=== PATIENT | male | born 1980 | race Caucasian/White ===

== ENCOUNTER 2024-12-15 18:58 | Emergency (ER) | payer SELFPAY ==
[2024-12-15 19:27] VITALS: BP 181/108; PULSE 98; RESP 16; TEMP 37.1; O2SAT 98; BMI 32.5
--- NOTE | 2024-12-15 20:20 | HMH.EDGENADL ---
Discharge Plan Disposition Patient Disposition: Home, Self-Care Condition: Good Prescriptions Prescriptions: New oxycodone 5 mg tablet 5 mg PO Q6H PRN (Reason: pain) 3 Days Qty: 10 0RF ketorolac 10 mg tablet 10 mg PO Q8H PRN (Reason: pain) 10 Days Qty: 20 0RF Referrals Follow up/Referrals: Provider,Referral, MD [Primary Care Provider] - See instructions Activity Restrictions/Add. Instructions Additional Instructions/Restrictions: After our discussion, including my recommendation that we drain fluid off your knee to see what the cause of the fluid accumulation is, which could be something infectious that could lead to disability or if untreated, we will proceed with concervative managment at this time. Please follow up with an orthopedist or pcp and return with new or worsening symptoms. Clinical Impressions Clinical Impression: Effusion of knee Stand Alone Forms Stand Alone Forms: Work/School Release Print Language Print Language: Maltese Discharge ED Provider: Jimmie Galloway Adult [facility] General Chief complaint: PAIN Stated complaint: left leg pain and swollen Time Seen by Provider: 12/15/24 20:20 Mode of Arrival: Ambulatory Source of Information: Patient Description of Symptoms (Recalled from ER Triage Doc. by RN): C/o pain and swelling to left upper thigh x 2 weeks. States it much worse today. postive pulse. Edema present History of Present Illness HPI narrative: Patient presents for evaluation of left knee and thigh pain, gradual in onset, worsening over the past 2 weeks. No associated fevers or chills. Patient has not had similar symptoms before. Patient noticed popping sensation within the past several days however had preceding pain. No history of gout. No history of blood thinner usage. No history of surgeries of the knee. Pain is dull and nonradiating. No overlying skin changes. He has been able to bear weight. Please note that above description of symptoms, in this electronic medical record under categorization of recalled from ER triage doctor by RN are reflective of an initial nursing assessment, however, is not reflective of my full history and physical exam that was personally taken and clarified. Consequentially, this preceding description of symptoms, which may include the patient's categorized chief complaint in the EMR, do not reflect my personal clinical impression, and the ultimate description of history of present illness and patient stated complaints should be deferred to this section of the note. Unless stated otherwise or congruent with this section of the note, additional signs, symptoms, or incongruence should be interpreted as inaccurate with my clinical impression. Related Data Previous Rx's ?Medication ?Instructions ?Recorded ketorolac 10 mg tablet 10 mg PO Q8H PRN pain 10 days #20 12/15/24 tabs oxycodone 5 mg tablet 5 mg PO Q6H PRN pain 3 days #10 12/15/24 tabs Allergies Allergy/AdvReac Type Severity Reaction Status Date / Time NKDA - NO KNOWN DRUG Allergy Unknown Uncoded 12/16/24 14:12 ALLERGIES PFSH PFS Disclaimer: The information contained in this section may have been updated after the patient was seen, as this information can be updated by other users. Social History (Updated 12/16/24 @ 15:38 by ÁNGEL Pepe) Smoking Status: Unknown if ever smoked alcohol intake: current current occupational status: employed Travel in the last 8 weeks: Inside the [place] ROS Obtained: Yes other As per HPI Physical Exam General General appearance: alert and in no apparent distress Head Head exam: atraumatic and normocephalic Eye Eye exam: Present normal appearance Neck Neck exam: Present normal inspection Chest Chest inspection: Present normal inspection and symmetric chest wall rise Respiratory Respiratory exam: Present normal lung sounds bilaterally; Absent respiratory distress Cardiovascular Cardiovascular exam: Present regular rate and normal rhythm Abdominal Exam Abdominal exam: Present soft Neurological Exam Neurological exam: Present alert and oriented X3 Psychiatric Psychiatric exam: Present normal affect and normal mood Skin Skin exam: Present warm and dry Other Other exam information: Left knee swollen, range of motion tolerable, patient able to bear weight. No overlying skin changes. No deformity. Neurovascularly intact. Medical Decision Making Medical Records Medical records reviewed: Yes I reviewed the patient's medical records. Screening: Per USPSTF and CDC recommendations, given the prevalence of disease in our region, it is our hospital?s policy to screen for HIV and viral Hepatitis for all patients aged 18 and over and those with ongoing risk factors. [place] Inquiry Pt receiving controlled substance: No Vital Signs: 12/15/24 19:27 12/15/24 23:57 Temperature 98.7 F 98 F Temperature Source Oral Oral Pulse Rate 70 Pulse Rate [Right Brachial] 98 H Respiratory Rate 16 18 Blood Pressure 150/101 H Blood Pressure [Right Arm] 181/108 H Blood Pressure Mean [Right Arm] 132 Blood Pressure Source [Right Arm] Automatic Cuff Blood Pressure Position [Right Arm] Sitting 02 Sat by Pulse Oximetry 98 Oxygen Delivery Method Room Air Room Air Lab Data Lab Results 12/15/24 20:45: WBC 5.8, RBC 4.22 L, Hgb 13.9 L, Hct 39.1 L, MCV 92.7, MCH 32.9 H, MCHC 35.5 H, RDW 15.6, Plt Count 91 L, MPV 11.2 H, Neut % (Auto) 61.7, Lymph % (Auto) 21.5, [place] % (Auto) 13.2 H, Eos % (Auto) 2.3, Baso % (Auto) 1.0, Neut # (Auto) 3.6, Lymph # (Auto) 1.2, [place] # (Auto) 0.8, Eos # (Auto) 0.1, Baso # (Auto) 0.1, ESR 1, Sodium 140, Potassium 3.7, Chloride 107, Carbon Dioxide 22, Anion Gap 14.7, BUN 7 L, Creatinine 0.70, Estimated Creat Clear 227, Estimated GFR 123, Est GFR ( Amer) 149, Glucose 113 H, Calcium 9.2, Total Bilirubin 4.3 H, AST 70 H, ALT 31, Alkaline Phosphatase 119, C-Reactive Protein 1.4, Total Protein 7.6, Albumin 3.7, Globulin 3.9 H, Albumin/Globulin Ratio 0.9 L 12/15/24 20:45 12/15/24 20:45 Orders (Tests/Meds): ED MEDICATIONS Discontinued Medications Generic Name Dose Route Start Last Admin Trade Name Freq PRN Reason Stop Dose Admin Dexamethasone Sodium Phosphate 8 mg 12/15/24 23:38 12/15/24 23:49 Dexamethasone 4mg/Ml 1ml Vial IV 12/15/24 23:39 8 mg ONCE ONE Administration Iopamidol 120 ml 12/15/24 21:19 12/15/24 21:20 Iopamidol-370 (76%);100ml Bottle IV 12/15/24 21:20 120 ml ONCE ONE Administration Ketorolac Tromethamine 15 mg 12/15/24 23:38 12/15/24 23:49 Ketorolac 30mg/Ml Vial IV 12/15/24 23:39 15 mg ONCE ONE Administration Morphine Sulfate 4 mg 12/15/24 21:35 12/15/24 21:37 Morphine 4mg/Ml Syringe IV 12/15/24 21:36 4 mg ONCE ONE Administration Morphine Sulfate 4 mg 12/15/24 23:38 12/15/24 23:49 Morphine 4mg/Ml Syringe IV 12/15/24 23:39 4 mg ONCE ONE Administration Sodium Chloride 10 ml 12/15/24 21:19 12/15/24 21:20 Sodium Chloride 0.9% 10ml Syr (Rad Only) IV 12/15/24 21:20 10 ml ONCE ONE Administration ORDERS Category Date Time Status CT knee LT w con Stat Cat Scan 12/15/24 20:39 Completed Knee XR left 3 views [XR knee LT 3V] Stat Exams 12/15/24 20:39 Completed POCUS Point of Care (ER Only) Stat Exams 12/15/24 20:24 Completed CBC w/Auto Diff [Complete Blood Count Auto Diff] Stat Lab 12/15/24 20:45 Completed CMP [Comprehensive Metabolic Panel] Stat Lab 12/15/24 20:45 Completed CRP [C-Reactive Protein] Stat Lab 12/15/24 20:45 Completed ESR [Erythrocyte Sedimentation Rate] Stat Lab 12/15/24 20:45 Completed Medical Decision Narrative: Patient with history and exam per above presenting for evaluation of knee pain Diagnoses considered include gout, septic arthritis, hemarthrosis, tendinous injury, fracture, among others ED workup and treatment included: ED MEDICATIONS Discontinued Medications Generic Name Dose Route Start Last Admin Trade Name Freq PRN Reason Stop Dose Admin Dexamethasone Sodium Phosphate 8 mg 12/15/24 23:38 12/15/24 23:49 Dexamethasone 4mg/Ml 1ml Vial IV 12/15/24 23:39 8 mg ONCE ONE Administration Iopamidol 120 ml 12/15/24 21:19 12/15/24 21:20 Iopamidol-370 (76%);100ml Bottle IV 12/15/24 21:20 120 ml ONCE ONE Administration Ketorolac Tromethamine 15 mg 12/15/24 23:38 12/15/24 23:49 Ketorolac 30mg/Ml Vial IV 12/15/24 23:39 15 mg ONCE ONE Administration Morphine Sulfate 4 mg 12/15/24 21:35 12/15/24 21:37 Morphine 4mg/Ml Syringe IV 12/15/24 21:36 4 mg ONCE ONE Administration Morphine Sulfate 4 mg 12/15/24 23:38 12/15/24 23:49 Morphine 4mg/Ml Syringe IV 12/15/24 23:39 4 mg ONCE ONE Administration Sodium Chloride 10 ml 12/15/24 21:19 12/15/24 21:20 Sodium Chloride 0.9% 10ml Syr (Rad Only) IV 12/15/24 21:20 10 ml ONCE ONE Administration ORDERS Category Date Time Status CT knee LT w con Stat Cat Scan 12/15/24 20:39 Completed Knee XR left 3 views [XR knee LT 3V] Stat Exams 12/15/24 20:39 Completed POCUS Point of Care (ER Only) Stat Exams 12/15/24 20:24 Completed CBC w/Auto Diff [Complete Blood Count Auto Diff] Stat Lab 12/15/24 20:45 Completed CMP [Comprehensive Metabolic Panel] Stat Lab 12/15/24 20:45 Completed CRP [C-Reactive Protein] Stat Lab 12/15/24 20:45 Completed ESR [Erythrocyte Sedimentation Rate] Stat Lab 12/15/24 20:45 Completed Labs were independently interpreted by me, significant for no leukocytosis, inflammatory markers within normal limits Imaging was independently visualized and interpreted by me, significant for large joint effusion, of indeterminate etiology Please refer to radiology report for full details. At this point I reassessed the patient. I discussed with him my clinical impression and results to this point. My recommendation at this time is to perform arthrocentesis to evaluate further for pathology that could result in disability or . The patient understands my concerns and my proposed workup. He declines further workup at this time and request conservative management with outpatient follow-up. He was encouraged to return to the emergency department should he change his mind and particularly if he should develop any new or worsening symptoms. Critical Care Critical Care Time Critical Care Time: No
--- NOTE | 2024-12-15 20:39 | XR_ITS ---
PROCEDURE INFORMATION: Exam: XR Left Knee Exam date and time: 12/15/2024 8:48 PM Age: 44 years old Clinical indication: Pain; Knee; Left; Additional info: Knee pain, effusion on pocus TECHNIQUE: Imaging protocol: Radiologic exam of the left knee. Views: 3 views. COMPARISON: No relevant prior studies available. FINDINGS: Bones/joints: No fracture or bone destruction. Large knee joint effusion. 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 Soft tissues: Normal. IMPRESSION: 1. No fracture or bone destruction. 2. Large knee joint effusion. 3. 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
--- NOTE | 2024-12-15 20:39 | CT_ITS ---
PROCEDURE INFORMATION: Exam: CT Left Lower Extremity With Contrast, Knee Exam date and time: 12/15/2024 9:14 PM Age: 44 years old Clinical indication: Pain; Knee; Left; Additional info: Knee pain, effusion on pocus TECHNIQUE: Imaging protocol: CT of the left lower extremity with intravenous contrast was performed. Exam focused on the knee. Radiation optimization: All CT scans at this facility use at least one of these dose optimization techniques: automated exposure control; mA and/or kV adjustment per patient size (includes targeted exams where dose is matched to clinical indication); or iterative reconstruction. Contrast material: ISOVUE; Contrast volume: 120 ml; Contrast route: IV; COMPARISON: CR XR KNEE LT 3V 12/15/2024 8:48 PM FINDINGS: Bones/joints: Large knee joint effusion with synovial enhancement image 4/49. No fracture or bone destruction. Soft tissues: Normal. IMPRESSION: 1. Large knee joint effusion with synovial enhancement image 4/49. Findings may reflect inflammation/infection. Knee joint aspiration may be helpful to further delineate this finding and to evaluate for septic arthritis. 2. No fracture or bone destruction.
[2024-12-15 20:59] LABS: Basophils # 0.1 K/mm3 (0-0.2); Eosinophils # 0.1 K/mm3 (0.0-0.4); Eosinophils % 2.3 % (0.1-12.0); Hematocrit 39.1 % (42.0-52.0); Hemoglobin 13.9 g/dL (14.1-18.0); Lymphocytes # 1.2 K/mm3 (0.7-4.5); Lymphocytes % 21.5 % (10-50); Mean Corpuscular HGB Conc 35.5 g/dL (31.8-35.4); Mean Corpuscular Hemoglobin 32.9 pg (27.0-31.2); Mean Corpuscular Volume 92.7 fl (80-94); Mean Platelet Volume 11.2 fl (7.4-10.4); Monocytes # 0.8 K/mm3 (0.1-1.0); Monocytes % 13.2 % (1.7-9.3); Neutrophils # 3.6 K/mm3 (1.8-7.8); Neutrophils % 61.7 % (37.0-80.0); Platelet Count 91 K/mm3 (142-424); Red Blood Count 4.22 M/mm3 (4.60-6.20); Red Cell Distribution Width 15.6 % (11.5-17.5); White Blood Count 5.8 K/mm3 (4.8-10.8)
[2024-12-15] MEDS: SODIUM CHLORIDE 0.9% 10ML SYR (RAD ONLY) 10 ML IV (21:20)
[2024-12-15] MEDS: IOPAMIDOL-370 (76%);100ML BOTTLE 120 ML IV (21:20)
[2024-12-15 21:23] LABS: Alanine Aminotransferase 31 U/L (12-78); Albumin Level 3.7 g/dl (3.5-5.0); Albumin/Globulin Ratio 0.9 (1.1-1.8); Alkaline Phosphatase 119 U/L (38-126); Anion Gap 14.7 mEq/L (5-15); Aspartate Amino Transferase 70 U/L (17-59); Bilirubin,Total 4.3 mg/dl (0.2-1.3); Blood Urea Nitrogen 7 mg/dl (9-20); Calcium 9.2 mg/dl (8.4-10.2); Carbon Dioxide 22 mmol/L (22.0-30.0); Chloride 107 mmol/L (98-107); Creatinine Clearance Estimated 227 mL/min (50-200); Estimated Glomerular Filt Rate 123 ml/min (>60); GFR (African American) 149 ML/MIN (>60); Globulin 3.9 g/dL (1.3-3.2); Glucose 113 mg/dl (74-100); Potassium 3.7 mmoL/L (3.5-5.1); Sodium 140 mmol/L (136-145); Total Protein,Serum 7.6 g/dl (6.3-8.2)
[2024-12-15 21:28] LABS: C-Reactive Protein 1.4 mg/L (0-4)
--- NOTE | 2024-12-15 21:30 | PC.NURSE ---
Patient refuses to wear monitoring equipment. Educated on risks and benefits.
[2024-12-15] MEDS: MORPHINE 4MG/ML SYRINGE 4 MG IV ×2 (21:37→23:49)
[2024-12-15 22:12] LABS: Erythrocyte Sedimentation Rate 1 mm/hr (0-15)
[2024-12-15] MEDS: DEXAMETHASONE 4MG/ML 1ML VIAL 8 MG IV (23:49)
[2024-12-15] MEDS: KETOROLAC 30MG/ML VIAL 15 MG IV (23:49)
[2024-12-15 23:57] VITALS: BP 150/101; PULSE 70; RESP 18; TEMP 36.6; O2SAT 98
== END 2024-12-15 23:58 | disposition home or self-care (01) ==
PROVIDERS: Emergency Provider Emergency Medicine
DX: M25.462 Effusion, left knee (principal)
CPT/HCPCS: 73562; 73701; 80053; 85025; 85651; 86140; 96374; 96375; 96376; 99285; J1100; J1885; J2270; Q9967

== ENCOUNTER 2025-05-28 10:42 | Outpatient (CLI) | payer BC, SELFPAY ==
--- OUTSIDE RECORDS SUMMARY | 2025-05-31 10:45 | XMS_ITS | Clinical Summary ---
Author Organization [facility] yste Address [address] [place] [address] Care Team Providers Care Grants Administrator Name Role Phone Tee Garcia MD Primary Care Provider [phone] Allergies No known active allergies Medications azithromycin (ZITHROMAX Z-DARRIN) 250 MG tablet Take 2 tablets the first day, then 1 tablet daily for 4 days. 6 tablet 09/25/2019 Active predniSONE (DELTASONE) 10 MG tablet 02/18// As directed PO 21 tablet 09/25/2019 Active albuterol sulfate HFA 108 (90 Base) MCG/ACT inhaler 1-2 puffs q 4-6 hours prn for SOB or wheeze 1 inhaler 09/25/2019 Active predniSONE (DELTASONE) 10 MG tablet /// As directed PO 21 tablet 10/17/2019 Active Social History Tobacco Use Types Packs/Day Years Used Date Smoking Tobacco: Every Day Cigarettes Abuse Screen Answer Date Recorded Unsafe at Home or Work/School Not on file Feels Threatened by Someone? Not on file 08/2023 Does Anyone Keep You from Co ntacting Others or Doint Things Outside the Home? Not on file 06/27/2023 Physical Sign of Abuse Present Not on file 1 Housing Stability Answer Date Recorded Current Living Arrangements Not on file 06/16 Potentially Unsafe Housing Conditions Not on kwadwo e 06/27/2023 Family and Community Support Answer Sly e Recorded Help with Day-to-Day Activities Not on file 06/27/2023 Lonely or Isolated Not on file 06/27/2023 Employment Answer Date Recorded Do you want help finding or keeping work or a twila b? Not on file 06/27/2023 Disabilities Answer Date Recorded Concentrating, Remembering, or Making Decisions Difficulty Not on file 06/27/2023 Doing Errands Independently Difficulty Not on fi le 06/27/2023 Education Answer Date Recorded Help with school or training? Not on file Preferred Language Not on file 06/27/2023 Sex and Gender Information Value Date Recorded Sex Assigned at Not on file Legal Sex Male 6:12 PM EST Gender Identity Not on file Sexual Orientation Not on file Last Filed Vital Signs Vital Sign Reading Time Taken Comments Blood Pressure - - Pulse 98 10/17/2019 5:36 PM EST Temperature 37.1 C (98.7 F) 10/17/2019 5:36 PM EST Respiratory Rate 19 10/17/2019 5:36 PM EST Oxygen Saturation 96% 10/17/2019 5:36 PM EST Inhaled Oxygen Concentration - - Weight 94.3 kg (208 lb) 10/17/2019 5:36 PM EST Height 190.5 cm (6' 3 ) 10/17/2019 5:36 PM EST Body Mass Index 26 10/17/2019 5:36 PM EST Plan of Treatment Health Maintenance Due Date Last Done Comments TDAP/TD VACCINES (2 - Tdap) 04/16/2006 04/16/1996 ANNUAL PHYSICAL 09/25/2019 HEPATITIS C SCREENING 09/25/2019 COVID-19 Vaccine (2023-2 5 season) 2025 INFLUENZA VACCINE 06/16/2025 Pneumococcal Vaccine 0-49 Aged Out No longer eligible based on patient's age to complete this topic Insurance [employer] Care Teams Grants Administrator Relationship Specialty Start Date End Date Tee Garcia MD [facility] [address] [id number] PCP - General Adolescent Medicine 09/25/19
--- OUTSIDE RECORDS SUMMARY | 2025-05-31 10:46 | XMS_ITS | Clinical Summary ---
Author Organization [facility] ([place], [place], [place], [place]) Address [address] [place] [address] Care Team Providers Care Saddle Maker Name Role Phone Tee Garcia MD Primary Care Provider [phone] Allergies Active Allergy Reactions Criticality Noted Date Comments Hydrocodone-Acetaminophen Itching High 04/15/2024 Medications multivitamin per tablet Take 1 tablet by mouth daily. 30 tablet 07/03/2024 Active thiamine 100 MG tablet Take 1 tablet (100 mg total) by mouth daily. 30 tablet 07/03/2024 Active Active Problems Problem Noted Date Diagnosed Date Alcohol abuse 07/02/2024 Methamphetamine use 07/02/2024 Cirrhosis 07/02/2024 Vapes nicotine containing substance 07/02/2024 Hyperbilirubinemia 07/01/2024 Upper GI bleed 07/01/2024 GIB (gastrointestinal bleeding) 07/01/2024 Elevated troponin 04/15/2024 Social History Tobacco Use Types Packs/Day Years Used Date Smoking Tobacco: Some Days Cigarettes Smokeless Tobacco: Current Tobacco Cessation:Ready to Q uit: Not Asked; Counseling Given: Not Answered Alcohol Use Standard Drinks/Week Comments Yes 2 (1 standard drink = 0.6 oz pur e alcohol) Housing Stability Vital Sign Answer Sly e Recorded In the last 12 months, was t here a time when you were not able to pay the mortgage or rent on time? No 04/15/2024 Number of Times Moved in the Last Year Not on fi le 04/15/2024 Homeless in the Last Year Not on file 2023 Utilities Answer Date Recorded In the past 12 months, has t he electric, gas, oil, or water company threatened to shut off services in your home? No 07/01/2024 Interpersonal Safety Answer Date Record ed How often does anyone, kandace meade family and friends, physically hurt you? Never 07/01/2024 How often does anyone, kandace meade family and friends, insult or talk down to you? Never 07/01/2024 How often does anyone, kandace meade family and friends, threaten you with harm? Never 07/01/2024 How often does anyone, kandace meade family and friends, scream or curse at you? Never 07/01/2024 Housing Stability Answer Date Recorded What is your living situation today? [place] a [place] [address] to live 07/01/[address] you li ve. Do you have problems with any of the following? None of the above 07/01/2024 Food Insecurity Answer Date Recorded Within the past 12 months, y ou worried that your food would run out before you got money to buy more. Never true 07/01/2024 Within the past 12 months, t he food you bought just didn't last and you didn't have money to get more. Never true 07/01/2024 Transportation Needs Answer Date Record ed In the past 12 months, has l ack of reliable transportation kept you from medical appointments, meetings, work or from getting things needed for daily living? No 07/01/2024 Financial Resource Strain Answer Date R ecorded How hard is it for you to pa y for the very basics like food, housing, medical care, and heating? Would you say it is: Somewhat hard 07/01/2024 Employment Answer Date Recorded Do you want help finding or keeping work or a job? I do not need or want help 07/01/2024 Family and Community Support Answer Sly e Recorded If for any reason you need h elp with day-to-day activities such as bathing, preparing meals, shopping, managing finances, etc., do you get the help you need? I get all the help I need 07/01/2024 Feeling Lonely or Isolated 0 07/01 Educational Attainment Answer Date Wyatt rded Do you speak a language other than Angolan at ho pr? No 07/01/2024 Do you want help with school or training? For example, starting or completing job training or getting a high school diploma, GED or equivalent. No 07/01/2024 Physical Activity Answer Date Recorded Number of minutes of exercise per week 10 07/01/2024 Self Management Answer Date Recorded Because of a physical, menta l, or emotional condition, do you have serious difficulty concentrating, remembering, or making decisions? (5 years or older) No 07/01/2024 Because of a physical, menta l, or emotional condition, do you have difficulty doing errands alone such as visiting a doctor's office or shopping? (15 years or older) No 07/01/2024 Substance Use Answer Date Recorded How many times in the past y ear have you used prescription drugs for non-medical reasons? Never 07/01/2024 How many times in the past year have you used [place] legal drugs? Never 07/01/2024 Mental Health Answer Date Recorded Calculation of above two rows 0 Sex and Gender Information Value Date Recorded Sex Assigned at Not on file Legal Sex Male 10:12 PM CDT Gender Identity Not on file Sexual Orientation Not on file Last Filed Vital Signs Vital Sign Reading Time Taken Comments Blood Pressure 118/57 07/03/2024 10:17 AM EDT Pulse 85 07/03/2024 10:24 AM EDT Temperature 36.7 C (98.1 F) 07/03/2024 9:13 AM EDT Respiratory Rate 18 07/03/2024 9:13 AM EDT Oxygen Saturation 93% 07/03/2024 10:24 AM EDT Inhaled Oxygen Concentration - - Weight 123.4 kg (272 lb) 07/01/2024 9:57 PM EDT Height 190.5 cm (6' 3 ) 07/01/2024 9:57 PM EDT Body Mass Index 34 07/01/2024 9:57 PM EDT Plan of Treatment Health Maintenance Due Date Last Done Comments Depression Screening (12+) 1993 Tobacco Cessation Counseling and Screening (12+) 11/05 DTAP/TDAP/TD VACCINES (1 - Tdap) 2000 Pneumococcal Vaccine: 0-49 Years (1 of 2 - PCV) 2000 COVID-19 VACCINE ( - season) 2025 Influenza Vaccine (#1) 2025 Lipid Panel 04/15/2027 04/15/2024 HIV Screening Completed 04/15/2024 Hepatitis C Screening Completed 04/15/2024 Procedures Procedure Name Priority Date/Time Associated Diagnosis Comments LIPID PANEL Add-On 04/15/2024 11:02 AM EDT HEPATITIS PANEL, ACUTE Routine 04/15/2024 10:39 AM EDT HIV 1/2 AG/AB COMBO Routine 04/15/2024 1 0:39 AM EDT from Last 3 Months or Most Recently Relevant to Health Maintenance Results * Lipid panel (04/15/2024 11:02 AM EDT) Triglycerides 79 0 - 249 mg/dL 04/15/2024 12:04 PM EDT [facility] Cholesterol 110 0 - 199 mg/dL 04/15/2024 12:04 PM EDT [facility] HDL Cholesterol 41 >=40 mg/dL 12:04 PM EDT [facility] VLDL Cholesterol 15.8 5 - 40 mg/dL 04/15/2024 12:04 PM EDT [facility] Cholesterol/HDL ratio 2.7 0.0 - 3.2 04/15/2024 12:04 PM EDT [facility] LDl/HDL Ratio 1 0 - 4 04/15/2024 12:04 PM EDT [facility] RISK COMP 3 04/15/2024 12:04 PM EDT [facility] LDL Cholesterol, Calculated 53 0 - 99 mg/dL 04/15/2024 12:04 PM EDT [facility] Blood Venipuncture / Unknown 04/15/2024 11:02 AM EDT 04/15/2024 11:10 AM EDT us Devyn Toth MD LAB BLOOD ORDERABLES Final Result [facility] [address] [phone] * HIV 1/2 AG/AB COMBO (04/15/2024 10:39 AM EDT) Pathologist [facility] HIV-1 P24 Antigen Nonreactive Nonreactive 04/15/2024 1:29 PM EDT [facility] Comment: The Combo HIV procedure is a fourth generation HIV test which detects BOTH p24 antigen AND HIV antibodies to HIV virus types 0, 1, and 2. A reactive result does not distinguish between the antigen or the antibody and does not specify which antibody is present. Additional testing is required to differentiate the component causing the reactive result. Biotin supplements can cause clinically significant incorrect lab results. The FDA has seen an increase in the number of adverse events related to biotin interference with lab tests. Blood Venipuncture / Unknown 04/15/2024 10:39 AM EDT 04/15/2024 11:50 AM EDT Devyn Toth MD LAB BLOOD ORDERABLES Final Result Performing Organization Address City/State/[facility] Co de Phone Number [facility] [address] [phone] * Hepatitis panel, acute (04/15/2024 10:39 AM EDT) [facility] Hep A IgM Nonreactive Nonreactive, Equivocal 04/15/2024 1:56 PM EDT [facility] Hep B C IgM Nonreactive Nonreactive 04/15/2024 1:56 PM EDT [facility] Hepatitis B surface antigen Nonreactive Nonreactive, Equivocal 04/15/2024 1:56 PM EDT [facility] Hepatitis C Ab Nonreactive Nonreactive, Equivocal 04/15/2024 1:56 PM EDT [facility] Blood Venipuncture / Unknown 04/15/2024 10:39 AM EDT 04/15/2024 11:50 AM EDT Narrative [facility] - 04/15/2024 1:56 PM EDT Hepatitis A Antibody IgM: (a) A negative test result does not exclude the possibility of exposure to the hepatitis A virus. (b) This test can be used to determine if a patient has or recently had an acute or asymptomatic hepatitis A infection. (c) A reactive result does not exclude co-infection by another hepatitis virus. Biotin supplements can cause clinically significant incorrect lab results. The FDA has seen an increase in the number of adverse events related to biotin interference with lab tests. Hepatitis B Core Antibody IgM: A reactive anti-HBc IgM result does not exclude co-infection by another hepatitis virus. Biotin supplements can cause clinically significant incorrect lab results. The FDA has seen an increase in the number of adverse events related to biotin interference with lab tests. Hepatitis B Surface Antibody Qual: This test does not differentiate between a vaccine induced immune response and an immune response induced by infection with HBV. Individuals that have received blood component therapies, (e.g. whole blood, plasma, immunoglobulin) administered during the previous 3 to 6 months may have a false reactive anti HBs due to passive transfer of anti HBs. A positive anti HBs result does not exclude co infection by another hepatitis virus. Biotin supplements can cause clinically significant incorrect lab results. The FDA has seen an increase in the number of adverse events related to biotin interference with lab tests. Hepatitis B Surface Antigen: This test may not detect all HBV mutants. If acute or chronic HBV infection is suspected and this test is non-reactive other HBV markers should be tested. Biotin supplements can cause clinically significant incorrect lab results. The FDA has seen an increase in the number of adverse events related to biotin interference with lab tests. Hepatitis C Antibody: A negative test result does not exclude the possibility of exposure to the hepatitis C virus and a reactive result does not exclude co-infection by another hepatitis virus. Biotin supplements can cause clinically significant incorrect lab results. The FDA has seen an increase in the number of adverse events related to biotin interference with lab tests. Devyn Toth MD LAB BLOOD ORDERABLES Final Result [facility] [address] [phone] from Last 3 Months or Most Recently Relevant to Health Maintenance Insurance Advance Directives For more information, please contact: [phone] * Full Code (Latest Code Status on File) Date Activated Date Inactivated Comments 07/01/2024 9:45 PM 07/03/2024 1:20 PM -Attempt R esuscitation if person has no pulse and is not breathing. -If no pulse or not breathing attempt CPR/CODE. -Call Rapid Response if patient is in distress. * Full Code Date Activated Date Inactivated Comments 04/15/2024 9:42 AM 04/16/2024 2:28 PM Care Teams Saddle Maker Relationship Specialty Start Date End Date Tee Garcia MD [address] [place] [id number] PCP - General Adolescent Medicine 07/01/24
--- OUTSIDE RECORDS SUMMARY | 2025-05-31 10:46 | XMS_ITS | Referral Summary ---
Author Organization [employer] ([place], [place], [place], [place]) Address [address] [place] [address] Care Team Providers Care Geriatric Assistant Name Role Phone Tee Garcia MD Primary Care Provider [phone] Allergies Active Allergy Reactions Criticality Noted Date [...] help 07/01/2024 Family and Community Support Answer Syl e Recorded If for any reason you need h elp with day-to-day activities such as bathing, preparing meals, shopping, managing finances, etc., do you get the help you need? I get all the help I need 07/01/2024 Feeling Lonely or Isolated 0 07/01 Educational Attainment Answer Date Wyatt rded Do you speak a language other than [place]riot at ho pa? No 07/01/2024 Do you want help with [...] 07/01/2024 9:57 PM EDT Plan of Treatment Not on file Procedures Procedure Name Priority Date/Time Associated Diagnosis Comments LIPID PANEL Add-On 04/15/2024 11:02 AM EDT HEPATITIS PANEL, ACUTE Routine 04/15/2024 10:39 AM EDT HIV 1/2 AG/AB COMBO Routine 04/15/2024 1 0:39 AM EDT from Last 3 Months or Most Recently Relevant to Health Maintenance Results * Lipid panel (04/15/2024 11:02 AM EDT) Triglycerides 79 0 - 249 mg/dL 04/15/2024 12:04 PM EDT [facility] Cholesterol 110 0 - 199 mg/dL 04/15/2024 12:04 PM EDT [facility] HDL Cholesterol 41 >=40 mg/dL 12:04 PM EDT [facility] VLDL Cholesterol 15.8 5 - 40 mg/dL 04/15/2024 12:04 PM EDT [facility] Cholesterol/HDL ratio 2.7 0.0 - 3.2 04/15/2024 12:04 PM EDT [facility] LDl/HDL Ratio 1 0 - 4 04/15/2024 12:04 PM EDT [facility] RISK COMP 3 04/15/2024 12:04 PM EDT [facility] LDL Cholesterol, Calculated 53 0 - 99 mg/dL 04/15/2024 12:04 PM EDT [facility] Blood Venipuncture / Unknown 04/15/2024 11:02 AM EDT 04/15/2024 11:10 AM EDT us Devyn Toth MD LAB BLOOD ORDERABLES Final Result Performing Organization Address City/State/[facility] Co de Phone Number [facility] [address] [phone] * HIV 1/2 AG/AB COMBO (04/15/2024 10:39 AM EDT) HIV-1 P24 Antigen Nonreactive Nonreactive 04/15/2024 1:29 PM EDT [facility] Comment: The Combo HIV procedure [...] BLOOD ORDERABLES Final Result Performing Organization Address City/State/[facility] Co de Phone Number [facility] [address] [phone] * Hepatitis panel, acute (04/15/2024 10:39 AM EDT) Hep A IgM Nonreactive Nonreactive, Equivocal 04/15/2024 1:56 PM EDT [facility] Hep B C IgM Nonreactive Nonreactive 04/15/2024 1:56 PM EDT [facility] Hepatitis B surface antigen Nonreactive Nonreactive, Equivocal 04/15/2024 1:56 PM EDT [facility] Hepatitis C Ab Nonreactive Nonreactive, Equivocal 04/15/2024 1:56 PM EDT [facility] Blood Venipuncture / Unknown 04/15/2024 10:39 AM EDT 04/15/2024 11:50 AM EDT Narrative [facility] - 04/15/2024 1:56 PM EDT [...] BLOOD ORDERABLES Final Result Performing Organization Address City/State/[facility] Co de Phone Number [facility] [address] [phone] from Last 3 Months or Most Recently Relevant to Health Maintenance Insurance Advance Directives For more information, please contact: [phone] * Full Code (Latest Code Status on File) Date Activated Date Inactivated Comments 07/01/2024 9:45 PM 07/03/2024 1:20 PM -Attempt R esuscitation if person has no pulse and is not breathing. -If no pulse or not breathing attempt CPR/CODE. -Call Rapid Response if patient is in distress. * Full Code Date Activated Date Inactivated Comments 04/15/2024 9:42 AM 04/16/2024 2:28 PM Care Teams Geriatric Assistant Relationship Specialty Start Date End Date Tee Garcia MD [address] [place] [id number] PCP - General Adolescent Medicine 07/01/24
== END 2025-05-28 23:59 ==
LOC: LAB.DROPOF 05-31 10:42
PROVIDERS: Visit Provider Nurse Practitioner
DX: R30.0 Dysuria (principal)
CPT/HCPCS: 87086; 87088; 87186